=== PATIENT | female | born 1995 | race Caucasian/White ===

== ENCOUNTER 2023-07-21 15:34 | Outpatient (CLI) | payer MEDICAID ==
[~2023-07-21 15:34] MED LIST: FAMO40TA73 PO; SUCR1ORA2 PO
== END 2023-07-21 23:59 | disposition home or self-care (01) ==
LOC: RAD 15:34
PROVIDERS: ATTEND Obstetrics & Gynecology
DX: Z53.09 Procedure and treatment not carried out because of other contraindication (principal)

== ENCOUNTER 2023-07-22 12:22 | Outpatient (CLI) | payer MEDICAID | END 2023-07-22 23:59 | disposition home or self-care (01) | LOC: RAD 12:22 | PROVIDERS: ATTEND Obstetrics & Gynecology | DX: O09.92 Supervision of high risk pregnancy, unspecified, second trimester (principal); Z3A.21 21 weeks gestation of pregnancy | CPT/HCPCS: 76811 ==